=== PATIENT | female | born 2005 | race Caucasian/White ===

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

== ENCOUNTER 2024-06-01 12:39 | Emergency (ER) | payer OTHER ==
[~2024-06-01] VITALS: Ht 154.9 cm; Wt 57.8 kg
[2024-06-01 14:07] LABS: INFLUENZA B NAA NEGATIVE (NEGATIVE); RESPIRATORY SYNCYTIAL VIR NAA NEGATIVE (NEGATIVE)
[2024-06-01 15:28] LABS: BILIRUBIN, URINE NEGATIVE (negative); BLOOD/HGB, URINE NEGATIVE (Negative); KETONE, URINE NEGATIVE (Negative); LEUK ESTERASE, URINE NEGATIVE (negative); NITRITE, URINE NEGATIVE (negative)
[2024-06-01] MEDS ORDERED: IBUPROFEN 800 MG TAB PO ONE (15:30)
[2024-06-01 15:33] LABS: CRYSTALS, URINE NONE SEEN (0-1+); RED BLOOD CELLS, URINE 0-1 /hpf (0-5)
[2024-06-01 15:34] LABS: BACTERIA, URINE NONE SEEN /hpf (negative); CASTS, URINE NONE SEEN \\lpf; COLLECTION TYPE, URINE CLEAN CATCH; REFLEX CULTURE, URINE No (No)
[2024-06-01 16:37] VITALS: BP 99/67
== END 2024-06-01 16:37 | disposition home or self-care (01) ==
LOC: ED 12:39
PROVIDERS: Emergency Medicine
DX: B34.9 Viral infection, unspecified (principal)
CPT/HCPCS: 71046; 81001; 84703; 87502; 87651; 99283-25; A9270; U0002

== ENCOUNTER 2024-11-23 20:50 | Emergency (ER) | payer OTHER ==
[~2024-11-23] VITALS: Ht 154.9 cm; Wt 57.6 kg
[2024-11-23] MEDS ORDERED: ondansetron HCL 4 MG/2 ML VIAL IV ONE (22:00)
[2024-11-23] MEDS ORDERED: SODIUM CHLORIDE 0.9% 1,000 ML IV ONE ×2 (22:00→23:45)
[2024-11-23 22:20] LABS: BILIRUBIN, URINE NEGATIVE (negative); BLOOD/HGB, URINE LARGE (Negative); KETONE, URINE SMALL (Negative); LEUK ESTERASE, URINE TRACE (negative); NITRITE, URINE POSITIVE (negative)
[2024-11-23] MEDS ORDERED: ACETAMINOPHEN 325 MG TAB PO ONE (22:45)
[2024-11-23] MEDS ORDERED: KETOROLAC TROMETHAMINE 15 MG/ML VIAL IV ONE (22:45)
[2024-11-23 22:46] LABS: HEMATOCRIT 34.1 % (34.1-44.9); HEMOGLOBIN 11.5 g/dL (11.2-15.7); MCH 30.2 PG (25.6-32.2); MCHC 33.7 g/dL (32.2-35.5); MCV 89.5 fL (79.4-94.8); PLATELET COUNT 549 K/uL (182-369); RBC 3.81 M/uL (3.93-5.22)
[2024-11-23 22:55] LABS: BACTERIA, URINE 2+ /hpf (negative); CRYSTALS, URINE NONE SEEN (0-1+); EPITHELIAL CELLS, URINE SQUAMOUS 2+ /lpf (0-1+); WHITE BLOOD CELLS, URINE 21-40 /HPF (0-5)
[2024-11-23 22:56] LABS: CASTS, URINE NONE SEEN \\lpf; COLLECTION TYPE, URINE CLEAN CATCH; REFLEX CULTURE, URINE No (No)
[2024-11-23 23:00] LABS: ALBUMIN 2.8 g/dL (3.4-5.0); ALBUMIN/GLOBULIN RATIO 0.51 (1.1-2.4); ANION GAP 19.4 (7-21); BILIRUBIN, TOTAL 1.4 mg/dL (0.2-1.0); BUN/CREATININE RATIO 14.84 (6.0-28.6); CREATININE, SERUM 1.28 mg/dL (0.55-1.02); MAGNESIUM 1.8 mg/dL (1.8-2.4); POTASSIUM 3.4 mmol/L (3.5-5.1); PROTEIN, TOTAL 8.3 g/dL (6.4-8.2)
[2024-11-23] MEDS ORDERED: CEFTRIAXONE SODIUM 2 GM in SODIUM CHLORIDE 0.9% 100 ML IV ONE (23:00)
[2024-11-23] MEDS ORDERED: IBUPROFEN 400 MG TAB PO ONE (23:00)
[2024-11-23 23:05] LABS: LYMPHOCYTES, MANUAL DIFF 6; MONOCYTES, MANUAL DIFF 4; NEUTROPHILS, MANUAL DIFF 90
[2024-11-23 23:41] LABS: LACTIC ACID, BLOOD 2.5 mmol/L (0.4-2.0)
[2024-11-24 00:45] LABS: BASOPHILS 0.1 % (0.1-1.2); EOSINOPHILS 0 % (0.7-5.8); HEMATOCRIT 26.2 % (34.1-44.9); HEMOGLOBIN 8.9 g/dL (11.2-15.7); MCH 30.1 PG (25.6-32.2); MCV 88.5 fL (79.4-94.8); MONOCYTES 10.6 % (4.7-12.5); NEUTROPHILS 85.4 % (34.0-71.1); PLATELET COUNT 395 K/uL (182-369); RBC 2.96 M/uL (3.93-5.22)
[2024-11-24] MEDS ORDERED: SODIUM CHLORIDE 0.9% 1,000 ML IV SCH (00:45)
[2024-11-24] MEDS ORDERED: HYDROCODON-ACE1 EA10 PO (01:04)
[2024-11-24] MEDS ORDERED: CEFDINIR300 MG PO (01:04)
[2024-11-24] MEDS ORDERED: ONDANSETRON ODT8 MG PO (01:04)
[2024-11-24] MEDS ORDERED: CEFDINIR 300 MG HOME.PACK PO ONE (01:15)
[2024-11-24] MEDS ORDERED: HYDROCODONE BIT/ACETAMINOPHEN 5/325 MG 1 TAB HOME.PACK PO ONE (01:15)
[2024-11-24] MEDS ORDERED: ONDANSETRON 4 MG HOME.PACK SL ONE (01:15)
== END 2024-11-24 02:20 | disposition home or self-care (01) ==
LOC: ED 20:50
PROVIDERS: Family Medicine
DX: N12 Tubulo-interstitial nephritis, not specified as acute or chronic (principal)
CPT/HCPCS: 36415; 71045; 74177; 80053; 81001; 83605; 83690; 83735; 84703; 85025; 96361; 96375; 99284-25; A9270; J0696; J1885; J2405; J7030; U0002